=== PATIENT | male | born 1945 | race Caucasian/White ===

== ENCOUNTER 2018-10-25 06:43 | Day surgery (SDC) | payer MEDICARE ==
[~2018-10-25] VITALS: Ht 175.3 cm; Wt 77.1 kg
[2018-10-25] VITALS (10 sets, daily range): BP systolic 98–141; BP diastolic 46–68
[~2018-10-25 06:43] MED LIST: CALCIUM 500 +1 EAC3 PO; DIGOXIN125 MCG ORAL; DIOVAN40 MG ORAL; ELIQUIS5 MG PO; KENALOG63 GM TP; LIPITOR80 MG ORAL; LUPRON DEPOT7.5 MG IM; METOPROLOL TART25 MG ORAL; METRONIDAZOLE45 G1 TOPIC; MULTIVITAMINS1 EAC2 ORAL; PERCOCET 10-321 EAC1 ORAL; PREDNISONE5 M3 PO; SPIRONOLACTONE25 MG ORAL; VALACYCLOVIR500 MG ORAL
[2018-10-25] MEDS ORDERED: ceFAZolin sod 1 GM in NS 55 ML IVPB ONE (07:00)
[2018-10-25] MEDS ORDERED: LORAZEPAM1 MG ORAL (07:22)
--- NOTE | 2018-10-25 07:56 | Pre-Procedure Note/Attestation ---
Pre-Procedure Note/Attestation Complete Prior to Procedure Planned Procedure: left Procedure Narrative: RIRS left with stent placement0 Attestation I attest that I discussed the nature of the procedure; its benefits; risks and complications; and alternatives (and the risks and benefits of such alternatives ), prior to the procedure, with the patient (or the patient's legal software support representative). I attest that, if there was a reasonable possibility of needing a blood transfusion, the patient (or the patient's legal software support representative) was given the [facility] standardized written summary, pursuant to the [place] Blood Safety Act ([place] Health and Safety Code # 1645, as amended). I attest that I re-evaluated the patient just prior to the surgery and that there has been no change in the patient's H&P, except as documented below: Adilson Woodward MD October 25, 2018 07:56
[2018-10-25] MEDS ORDERED: Midazolam 2mg/2ml Inj ONE (09:15)
[2018-10-25] MEDS ORDERED: fentaNYL 100 mcg/2 mL IV ONE (09:15)
[2018-10-25] MEDS ORDERED: Propofol 200mg/20ml IV ONE (09:18)
[2018-10-25] MEDS ORDERED: Lidocaine 1% MPF 10mg/ml 5ml ONE (09:18)
[2018-10-25] MEDS ORDERED: Iothalamate Meglumine 60% 30ML INJ ONE (10:31)
[2018-10-25] MEDS ORDERED: NS Irrig 4000ml IRRIG ONE (10:50)
[2018-10-25] MEDS ORDERED: Sterile Water For Irrig 2000ml IRRIG ONE (10:50)
[2018-10-25] MEDS ORDERED: LR 1000ml ONE (11:00)
[2018-10-25] MEDS ORDERED: LR 1000ml 1,000 ML IVLG SCH (11:19)
--- NOTE | 2018-10-25 11:19 | Anethesia Preoperative Eval ---
Anesthesia Pre-op PMH/ROS General Date of Evaluation: October 25, 2018 Time of Evaluation: 10:32 Anesthesiologist: Dioni ASA Score: ASA 3 Mallampati Score Class I : Soft palate, uvula, fauces, pillars visible Class II: Soft palate, uvula, fauces visible Class III: Soft palate, base of uvula visible Class IV: Only hard plate visible Mallampati Classification: Class II Surgeon: Trace Diagnosis: L hydronephrosis Surgical Procedure: Cysto retrograde pyelogra stent placement Anesthesia History: none Family History: no anesthesia problems Allergies: Coded Allergies: No Known Allergies (Unverified , 10/25/18) Medications: see eMAR Patient NPO?: Yes Past Medical History Cardiovascular: Reports: HTN, CAD - stable no recent C/P, arrhythmia - A fib Pulmonary: Reports: asthma - mild; Denies: COPD, [place], other Gastrointestinal/Genitourinary: Reports: GERD, CRI, other - prostate CA s/p Sx ; Denies: ESRD Neurologic/Psychiatric: Reports: depression/anxiety; Denies: dementia, CVA, TIA, other Endocrine: Denies: DM, hypothyroidism, steroids, other HEENT: Denies: cataract (L), cataract (R), glaucoma, [place] (L), [place] (R), other Hematology/Immune: Reports: anemia - mild, bleeding disorder - on anticoagulant ; Denies: DVT, other Musculoskeletal/Integumentary: Reports: OA, DJD; Denies: RA, DDD, edema, other PMH Narrative: as above PSxH Narrative: Back Sx Anesthesia Pre-op Phys. Exam Physician Exam Last Vital Signs Date Time Temp Pulse Resp B/P (MAP) Pulse Ox O2 Delivery O2 Flow Rate FiO2 10/25/18 07:29 Room Air 10/25/18 07:27 97.0 88 18 141/59 100 Constitutional: NAD Neurologic: CN 2-12 intact Cardiovascular: other - IIR Respiratory: CTA Gastrointestinal: S/NT/ND Airway Exam Mallampati Score: Class II MO: full Neck: stiff ROM: limited Teeth: missing Dentures: no upper, no lower Anesthesia Pre-op A/P Labs see chart Studies Pre-op Studies: EKG - A fib Risk Assessment & Plan Assessment: ASA 3 Plan: GA with LMA Status Change Before Surgery: No Pre-Antibiotics Drug: Ancef 1gr. Given Within 1 Hr of Incision: Yes Time Given: 11:02 Eric Wheatley MD October 25, 2018 11:19
[2018-10-25] MEDS ORDERED: Ketorolac 30mg Inj IV PRN (11:30)
[2018-10-25] MEDS ORDERED: DiphenhydrAMINE 50mg/ml Inj IVP PRN (11:30)
[2018-10-25] MEDS ORDERED: Hydromorphone 0.5mg/0.5ml inj IVP PRN (11:30)
--- NOTE | 2018-10-25 11:33 | Brief Operative Note ---
Immediate Post Operative Note Operative Note Pre-op Diagnosis: left hydronephrosis Procedure: Left RIRS RPG and stent placement Post-op Diagnosis: same Post-op Diagnosis: same as pre-op Surgeon: Rolan Woodward Anesthesia: general Specimen: none Complications: none Condition: stable Fluids: 1000 Implant(s) used?: No Adilson Woodward MD October 25, 2018 11:33
--- NOTE | 2018-10-25 11:43 | Immediate Post-Op Evaluation ---
Immediate Post-Op Evalulation Immediate Post-Op Evalulation Procedure: Cysto, retrograde pyelogram stent placement Date of Evaluation: October 25, 2018 Time of Evaluation: 11:42 IV Fluids: 1000 Blood Products: none Estimated Blood Loss: min Urinary Output: n/a Blood Pressure Systolic: 107 Blood Pressure Diastolic: 56 Pulse Rate: 82 Respiratory Rate: 20 O2 Sat by Pulse Oximetry: 98 Temperature (Fahrenheit): 97.6 Pain Score (1-10): 1 Nausea: No Vomiting: No Complications none Patient Status: reacts, patent, none Hydration Status: adequate Eric Wheatley MD October 25, 2018 11:43
[2018-10-25] MEDS ORDERED: HYDROcodone/Acetamin 5/325 tab ORAL PRN (11:45)
[2018-10-25] MEDS ORDERED: Tylenol #3 tab (300mg/30mg) ORAL PRN (11:45)
[2018-10-25] MEDS ORDERED: HYDROmorphone 1mg/ml Carpuject SUBQ PRN (11:45)
--- NOTE | 2018-10-25 12:54 | 48 Hour Post Anesthesia Eval ---
Post Anesthesia Evaluation Procedure: Cysto, retrograde pyelogram stent placement Date of Evaluation: October 25, 2018 Time of Evaluation: 12:53 Blood Pressure Systolic: 116 0: 74 Pulse Rate: 69 Respiratory Rate: 20 Temperature (Fahrenheit): 97.6 O2 Sat by Pulse Oximetry: 98 Airway: patent Nausea: No Vomiting: No Pain Intensity: 2 Hydration Status: adequate Cardiopulmonary Status: stable Mental Status/LOC: patient returned to baseline Follow-up Care/Observations: n/a Post-Anesthesia Complications: none Follow-up care needed: ready to discharge Eric Wheatley MD October 25, 2018 12:54
[2018-10-25] MEDS ORDERED: Ketorolac 30mg Inj IV SCH (13:05)
[2018-10-25] MEDS ORDERED: Ketorolac 30mg Inj ONE (13:09)
--- NOTE | 2018-10-25 14:56 | Diagnostic Imaging Report ---
INDICATION: Pain, intraoperative TECHNIQUE: Intraoperative imaging Fluoroscopy time: One a 1.4 seconds Total dose: [id number] mGym2 Total number of images: 8 COMPARISON: None FINDINGS: Intraoperative images demonstrate cannulation of the left ureter. There is marked left hydronephrosis. Completion images demonstrate placement of a left nephroureteral stent in good position IMPRESSION: Intraoperative imaging, as described
[2018-10-25] MEDS ORDERED: D5 1/2NS 1,000 ML IV SCH (16:00)
--- NOTE | 2018-10-26 19:30 | Operative Note - Dictated ---
DATE OF OPERATION: 10/25/2018 PREOPERATIVE DIAGNOSIS: Left hydronephrosis. POSTOPERATIVE DIAGNOSIS: Left hydronephrosis. OPERATIONS: Cystoscopy, retrograde pyelogram, double-J stent placement, retrograde intrarenal surgery. [employer]EL[employer] MACHINE OPERATOR: Adilson Woodward M.D. ANESTHESIA: General. FINDINGS: Very narrow stenotic distal left ureter with marked left hydronephrosis. INDICATIONS FOR SURGERY: The patient is a prostate cancer survivor that underwent prostatectomy and then radiation therapy and hormones and chemotherapy, developed left hydronephrosis and recurrent UTIs. Treatment options were explained to him in great length including all potential complications. He signed a consent. DESCRIPTION OF OPERATION: He was brought to the operating room, placed in the lithotomy position, prepped and draped in standard fashion. Under general anesthesia, cystoscope was introduced into the bladder. Bladder was essentially normal. Left ureter was cannulated and retrograde pyelogram was performed showing a distal ureteral narrowing with further dilation of the mid and upper left ureter and left hydronephrosis. Guidewire was placed into the left ureter and flexible ureteroscope was placed and carried all the way to the ureter. After that, the lumen in the ureter was so small and stenotic that it was impossible to pass the scope. Double-J stent, 26 gauge was placed in the left indwelling. The patient tolerated the procedure well. No evidence of complications. Adilson Woodward M.D. DR: JESUS JOB#: [id number] CC:
== END 2018-10-25 13:35 | disposition home or self-care (01) ==
LOC: SUR 06:43
DX: N13.30 Unspecified hydronephrosis (principal); I25.10 Atherosclerotic heart disease of native coronary artery without angina pectoris; F32.9 Major depressive disorder, single episode, unspecified; F41.9 Anxiety disorder, unspecified; K21.9 Gastro-esophageal reflux disease without esophagitis; I13.10 Hypertensive heart and chronic kidney disease without heart failure, with stage 1 through stage 4 chronic kidney disease, or unspecified chronic kidney disease; E11.22 Type 2 diabetes mellitus with diabetic chronic kidney disease; N18.9 Chronic kidney disease, unspecified; Z85.46 Personal history of malignant neoplasm of prostate; M19.90 Unspecified osteoarthritis, unspecified site; Z79.01 Long term (current) use of anticoagulants; I48.91 Unspecified atrial fibrillation
CPT/HCPCS: 52005; 52332; 74420; 76000; J0690; J1885; J1940; J2250; J2704; J3010; Q9961; 94003; 94150